=== PATIENT | female | born 1970 | race Two or more races ===

== ENCOUNTER 2018-11-22 23:17 | Emergency (ER) | payer SELFPAY ==
[~2018-11-22] VITALS: Ht 160 cm; Wt 83.9 kg
[2018-11-22] MEDS ORDERED: ALTEPLASE ONE (23:41)
[2018-11-22 23:44] LABS: Basophils # (auto) 0.1 uL; Monocytes # (auto) 0.4 uL; Neutrophils # (auto) 6.3 uL
[2018-11-22] MEDS ORDERED: ONDANSETRON HCL 4 MG/2 ML VIAL ONE (23:44)
[2018-11-22 23:45] LABS: Eosinophils # (auto) 0.2 uL; Eosinophils % (auto) 1.9 % (0.0-7.0); Hematocrit 44.2 % (36.0-46.0); Hemoglobin 14.6 g/dL (12.2-16.2); Lymphocytes % (auto) 12.9 % (10.0-50.0); Mean Corpuscular Hemoglobin 27.2 pg (28.0-32.0); Mean Corpuscular Volume 82.4 fL (80.0-100.0); Monocytes % (auto) 4.9 % (0.0-12.0); Neutrophils % (auto) 79.3 % (37.0-80.0); Platelet Count (auto) 182 10^3/uL (140-450); Red Blood Cells 5.37 10^6/uL (4.0-5.20)
[2018-11-22] MEDS ORDERED: hydrALAZINE HCL 20 MG/ML VL ONE (23:45)
[2018-11-22] MEDS ORDERED: MIDAZOLAM HCL 5 MG/ML-1ML VIAL ONE (23:49)
[2018-11-22] MEDS ORDERED: ETOMIDATE (2MG/ML) 20ML VIAL IV ONE (23:49)
[2018-11-22] MEDS ORDERED: SUCCINYLCHOLINE CHLORIDE 20 MG/ML 10ML VIAL IV ONE (23:50)
[2018-11-22] MEDS ORDERED: PROPOFOL 100 ML IV SCH (23:56)
[2018-11-22] MEDS ORDERED: PROPOFOL 100 ML IV ONE (23:58)
[2018-11-23] LABS: Urine Bacteria FEW /hpf (None Seen); Urine Blood TRACE /uL (Negative); Urine Specific Gravity 1.008 (1.001-1.035); Urine WBC 4 /hpf (0 - 5)
[2018-11-23] MEDS ORDERED: MIDAZOLAM HCL 5 MG/ML-1ML VIAL IV ONE
[2018-11-23] MEDS ORDERED: ONDANSETRON HCL 4 MG/2 ML VIAL IV ONE
[2018-11-23] MEDS ORDERED: ETOMIDATE (2MG/ML) 20ML VIAL IV ONE
[2018-11-23] MEDS ORDERED: NICARDIPINE 25MG/250ML BAG KIT 250 ML IV ONE
[2018-11-23] MEDS ORDERED: SUCCINYLCHOLINE CHLORIDE 20 MG/ML 10ML VIAL IV ONE
[2018-11-23] MEDS ORDERED: hydrALAZINE HCL 20 MG/ML VL IV ONE
[2018-11-23 00:01] LABS: INR 2.1 (0.9-1.15); Partial Thromboplastin Time 36.6 sec (23.78-33.04); Prothrombin Time 21.5 sec (9.27-12.13)
[2018-11-23 00:03] LABS: Albumin 3.5 g/dL (3.4-5.0); BUN/Creatinine Ratio 18.2; Calcium 8.9 mg/dL (8.5-10.1); Magnesium 2.1 mg/dL (1.6-2.6)
[2018-11-23 00:04] LABS: Alcohol, Urine < 3.0 mg/dL (0-5); Amphetamine Screen, Urine NEGATIVE (NEGATIVE); Barbiturate Scree,Urine NEGATIVE (NEGATIVE); Benzodiazephine Screen, Urine NEGATIVE (NEGATIVE); Cannabinoid Screen, Urine NEGATIVE (NEGATIVE); Cocaine Screen, Urine NEGATIVE (NEGATIVE); Opiate Scree,Urine NEGATIVE (NEGATIVE); Phencyclidine Screen, Urine NEGATIVE (NEGATIVE)
[2018-11-23 00:10] LABS: Bilirubin, Total 0.5 mg/dL (0.2-1.0); Total Protein 9.2 g/dL (6.4-8.2)
[2018-11-23] MEDS ORDERED: NICARDIPINE 25MG/250ML BAG KIT 250 ML IV SCH ×2 (00:15)
[2018-11-23] MEDS ORDERED: MANNITOL 20 % (20GM/100ML) 500 ML IV ONE (00:28)
[2018-11-23] MEDS ORDERED: MANNITOL FTV 25% 12.5 GM/50 ML 0 ML IV ONE (00:29)
[2018-11-23] MEDS ORDERED: MANNITOL 20% SOLN 100 gm/500ml 250 ML IV ONE (00:30)
[2018-11-23 00:55] VITALS: BP 114/62
== END 2018-11-23 01:15 | disposition short-term general hospital (02) ==
LOC: EDBD 23:22 → ER 23:22
DX: I61.0 Nontraumatic intracerebral hemorrhage in hemisphere, subcortical (principal); I10 Essential (primary) hypertension; J81.1 Chronic pulmonary edema; E11.9 Type 2 diabetes mellitus without complications; Z88.0 Allergy status to penicillin
CPT/HCPCS: 31500; 36415; 51702; 70450; 71045; 80053; 80307; 80320; 81001; 81025; 83735; 84484; 85025; 85610; 85730; 93005; 96365; 96368; 96375; 99291; J0330; J0360; J2250; J2405; J2704; 94002